=== PATIENT | male | born 1980 | race Caucasian/White ===

== ENCOUNTER 2021-10-18 15:19 | Emergency (ER) | payer OTHER ==
[2021-10-18] MEDS ORDERED: METHOCARBAMOL 500 MG TABLET PO ONE (15:37)
[2021-10-18] MEDS ORDERED: KETOROLAC TROMETHAMINE 30 MG/1 ML VIAL IM ONE (15:37)
[2021-10-18] MEDS ORDERED: KETOROLAC TROMETHAMINE 30 MG/1 ML VIAL ONE (15:45)
[2021-10-18] MEDS ORDERED: METHOCARBAMOL 500 MG TABLET ONE (15:45)
[2021-10-18 15:51] VITALS: BMI 25.8
[2021-10-18 16:03] VITALS: BP 134/80; PULSE 82; TEMP 98.3
== END 2021-10-18 16:37 | disposition home or self-care (01) ==
LOC: FER 15:19
PROC: 3E0233Z Introduction of Anti-inflammatory into Muscle, Percutaneous Approach (ICD-10-PCS; principal; 2021-10-18)
DX: M54.50 Low back pain, unspecified (principal)
CPT/HCPCS: 99283-25

== ENCOUNTER 2023-02-13 19:11 | Emergency (ER) | payer OTHER ==
[2023-02-13] MEDS ORDERED: LIDOCAINE 5% TOPICAL PATCH TP ONE (19:18)
[2023-02-13] MEDS ORDERED: METHOCARBAMOL 500 MG TABLET PO ONE (19:18)
[2023-02-13 19:23] VITALS: BP 135/92; PULSE 66; RESP 19; TEMP 97.7; BMI 27.3
[2023-02-13] MEDS ORDERED: METHOCARBAMOL 500 MG TABLET ONE (19:26)
[2023-02-13] MEDS ORDERED: LIDOCAINE 5% TOPICAL PATCH ONE (19:26)
[2023-02-14] MEDS ORDERED: LIDOCAINE PATCH REMOVAL MC SCH (07:00)
== END 2023-02-13 20:37 | disposition home or self-care (01) ==
LOC: FER 19:11
DX: M54.42 Lumbago with sciatica, left side (principal)
CPT/HCPCS: 72100-TC-FY; 99283-25

== ENCOUNTER 2024-01-14 08:14 | Emergency (ER) | payer OTHER ==
[2024-01-14] MEDS ORDERED: ACETAMINOPHEN 325 MG TABLET (FP) ONE (08:47)
[2024-01-14] MEDS: ACETAMINOPHEN 500 MG TABLET (FP) PO ONE (09:04)
[2024-01-14] MEDS: ACETAMINOPHEN 325 MG TABLET (FP) PO ONE (09:04)
[2024-01-14 09:14] VITALS: BP 129/80; PULSE 66; RESP 16; TEMP 98.1; BMI 25.1
== END 2024-01-14 09:24 | disposition home or self-care (01) ==
LOC: FER 08:14
DX: S90.31XA Contusion of right foot, initial encounter (principal); W20.8XXA Other cause of strike by thrown, projected or falling object, initial encounter
CPT/HCPCS: 73630-TC-RT-FY; 99283-25

== ENCOUNTER 2024-02-16 16:22 | Emergency (ER) | payer OTHER ==
[2024-02-16 16:35] VITALS: BMI 23.8
[2024-02-16 17:14] LABS: HEMOGLOBIN 12.2 G/dL (11.7-16.9); MCH 25.7 pg (25.7-33.7); MCHC 31.2 g/dl (32.0-35.9); MEAN CELL VOLUME 82.2 fl (80-96); PLATELET COUNT 382.1 10^3/uL (134-434); RBC 4.74 10^6/uL (4.00-5.60); RDW 16.9 % (11.9-15.9); WHITE BLOOD COUNT 9.3 10^3/uL (4.0-10.8)
[2024-02-16 17:20] LABS: INR 1.05 (0.83-1.09)
[2024-02-16 17:23] LABS: ACTIVATED PTT 35.2 SECONDS (25.2-36.5)
[2024-02-16 17:24] LABS: PLATELET ESTIMATE ADEQUATE
[2024-02-16 17:31] LABS: ALBUMIN 3.8 g/dl (3.4-5.0); CALCIUM 9.2 mg/dl (8.5-10.1); CREATININE 0.9 mg/dl (0.6-1.3); TOT PROT 6.9 g/dl (6.4-8.2)
[2024-02-16] MEDS: SODIUM CHLORIDE 0.9% 1000 ML INFUS.BAG IV ONE (18:30)
[2024-02-16] MEDS ORDERED: PIPERACILLIN/TAZOBACTAM 4.5 GM VIAL IVPB ONE (18:33)
[2024-02-16] MEDS: PIPERACILLIN/TAZOB 4.5 GM 4.5 GM in DEXTROSE 5%-WATER 100 ML IVPB ONE (18:46)
[2024-02-16 19:05] LABS: BILIRUBIN,DIRECT 7.2 mg/dL (0.0-0.2)
[2024-02-16 19:07] LABS: BILIRUBIN,TOTAL 11.5 mg/dl (0.2-1)
[2024-02-17 01:30] VITALS: BP 124/78; PULSE 92; RESP 18; TEMP 98
== END 2024-02-17 01:01 | disposition short-term general hospital (02) ==
LOC: FER 16:22
DX: K83.1 Obstruction of bile duct (principal); E80.6 Other disorders of bilirubin metabolism; D80.1 Nonfamilial hypogammaglobulinemia; Z20.822 Contact with and (suspected) exposure to COVID-19
CPT/HCPCS: 0241U-QW; 36415; 74177-TC; 76705-TC; 80053; 82248; 83605; 83690; 85027; 85610; 85730; 99285-25; Q9967